=== PATIENT | female | born 1980 | race Caucasian/White ===

== ENCOUNTER 2018-12-06 22:40 | Emergency (ER) | payer BC ==
[~2018-12-06] VITALS: Ht 170.2 cm; Wt 79.5 kg
[2018-12-06 22:49] VITALS: BP 129/73; TEMP 97.7
[2018-12-06] MEDS ORDERED: LOW-OGESTREL 281 TAB PO (22:59)
[2018-12-06 23:55] VITALS: PULSE 98
== END 2018-12-06 23:55 | disposition home or self-care (01) ==
LOC: COL.ER 22:40
DX: S52.501A Unspecified fracture of the lower end of right radius, initial encounter for closed fracture (principal); Z23 Encounter for immunization; V03.90XA Pedestrian on foot injured in collision with car, pick-up truck or van, unspecified whether traffic or nontraffic accident, initial encounter; Y92.414 Local residential or business street as the place of occurrence of the external cause